=== PATIENT | female | born 1950 | race Caucasian/White ===

== ENCOUNTER 2019-02-05 10:04 | Day surgery (SDC) | payer MEDICARE ==
[~2019-02-05] VITALS: Ht 162.6 cm; Wt 122.5 kg
[2019-02-05] VITALS (9 sets, daily range): BP systolic 128–172; BP diastolic 47–85
[~2019-02-05 10:04] MED LIST: ASPI-1264 PO; CITA40TA17 PO; EZET10TA14 PO; HYDR-3972 PO; HYDR25TA4 PO; IBUP-1986 PO; LORA1TAB PO; NITR0.4T SL; ROSU40TA PO; TRAZ-218 PO; WALKERFR
[2019-02-05] MEDS ORDERED: diphenhydrAMINE 25mg capsule PO PRN (10:30)
[2019-02-05 10:47] LABS: BASOPHILS # (AUTO) 0.1 X10'3 (0-0.2); BASOPHILS % (AUTO) 0.8 % (0-1); EOSINOPHILS # (AUTO) 0.1 X10'3 (0-0.9); EOSINOPHILS % (AUTO) 1.7 % (0-6); HEMATOCRIT 40.9 % (35.0-45.0); HEMOGLOBIN 13.7 g/dl (12.0-16.0); LYMPHOCYTES # (AUTO) 2.9 X10'3 (1.1-4.8); LYMPHOCYTES % (AUTO) 36.4 % (21-51); MEAN CORPUSCULAR HGB CONC 33.5 g/dL (33.0-36.5); MEAN CORPUSCULAR VOLUME 86.5 FL (78-98); MEAN PLATELET VOLUME 7.8 FL (7.4-10.4); MONOCYTES # (AUTO) 0.5 X10'3 (0-0.9); MONOCYTES % (AUTO) 6.2 % (2-12); NEUTROPHILS # (AUTO) 4.4 X10'3 (1.8-7.7); NEUTROPHILS % (AUTO) 54.9 % (42-75); PLATELET COUNT 236 X10'3 (140-440); RED BLOOD COUNT 4.73 X10'6 (4.20-5.60); RED CELL DISTRIBUTION WIDTH 14.2 % (11.5-14.5); WHITE BLOOD COUNT 8.1 X10'3 (4.5-11.0)
[2019-02-05 10:57] LABS: ALBUMIN 3.5 G/DL (3.4-5.0); ANION GAP 12 (8-16); BLOOD UREA NITROGEN 13 MG/DL (7-18); BUN/CREATININE RATIO 19.4 (6.6-38.0); CALCIUM 9.4 MG/DL (8.5-10.1); CHLORIDE 102 MMOL/L (99-107); CREATININE 0.67 MG/DL (0.40-0.90); GLUCOSE 136 MG/DL (70-104); MAGNESIUM 1.6 MG/DL (1.5-2.4); POTASSIUM 3.7 MMOL/L (3.5-5.1); SODIUM 141 MMOL/L (135-145); TOTAL CARBON DIOXIDE 27.3 MMOL/L (24-32); eGFR 87 ML/MIN
[2019-02-05 11:25] LABS: PROTHROMBIN TIME 9.7 SECONDS (9.0-12.0)
[2019-02-05] MEDS ORDERED: LOSA25TA96 PO (11:39)
[2019-02-05] MEDS ORDERED: FAMO40TA7 PO (11:39)
[2019-02-05] MEDS ORDERED: LIDOcaine 1% (10mg/ml)w/preservative injection 20ml MDV ONE (12:04)
[2019-02-05] MEDS ORDERED: iohexol 350MG/ML 100ml bottle IV ONE (12:04)
[2019-02-05] MEDS ORDERED: iohexol 350 MG/ML 50ML vial IV ONE (12:04)
[2019-02-05] MEDS ORDERED: midazolam 2 mg/2 ml injection ONE ×2 (12:17→12:25)
[2019-02-05] MEDS ORDERED: fentaNYL/PF 50MCG/1 ML 2ML syringe ONE (12:18)
[2019-02-05] MEDS ORDERED: proCHLORperazine 10 MG/2 ml inj ONE (12:22)
[2019-02-05] MEDS ORDERED: HYDROcodone/acetaminophen 5mg/325mg tablet PO PRN (13:20)
[2019-02-05] MEDS ORDERED: HYDROcodone/acetaminophen 10/325mg tab PO PRN (13:25)
[2019-02-10] MEDS ORDERED: CITA40TA22 PO (06:48)
[2019-02-10] MEDS ORDERED: CALC500T11 PO (06:48)
[2019-02-10] MEDS ORDERED: METO50TA7 PO (06:50)
== END 2019-02-05 16:25 | disposition home or self-care (01) ==
LOC: SSTAY O 10:04
PROVIDERS: ATTEND Internal Medicine Cardiovascular Disease
DX: I25.119 Atherosclerotic heart disease of native coronary artery with unspecified angina pectoris (principal); I25.2 Old myocardial infarction; J44.9 Chronic obstructive pulmonary disease, unspecified; E66.9 Obesity, unspecified; Z85.118 Personal history of other malignant neoplasm of bronchus and lung
CPT/HCPCS: 36415; 80048; 82948; 83735; 85025; 85610; 93005; 93458; 99152; 99153; A6257; J0780; J1644; J2001; J2250; J3010; Q0163; Q9967; A4620; C1760; C1769; C1894

== ENCOUNTER 2019-02-10 06:10 | Inpatient (IN) | payer MEDICARE | END 2019-02-11 11:38 | disposition home or self-care (01) | LOC: SSTAY O 06:10 → PCU 3S 11:39 ==